=== PATIENT | female | born 1950 | race Caucasian/White ===

== ENCOUNTER → 2018-04-28 12:53 | Outpatient (CLI) | payer MEDICARE, OTHER, SELFPAY ==
--- NOTE | 2018-04-28 | DI.CT.S_ITS ---
PROCEDURE: CT LE LT W CON INDICATIONS: ARTHRITIS OF LEFT FOOT TECHNIQUE: Noncontrast 1-1.5 mm axial sections acquired from above the tibiotalar joint to the bottom of the calcaneus, with coronal and sagittal reformats. COMPARISON: [facility], CR, XR FOOT 3 VIEWS WEIGHT BEARING LEFT, 11/26/2017, 15:31. FINDINGS: Image quality: Excellent. Bones: No acute fracture or focal osseous destruction identified. 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 There is second TMT joint degeneration with subchondral sclerosis and cystic change. Prominent spurring seen at the base of the fifth metatarsal versus sequela from prior remote trauma. A presumed a 4 mm bone island seen in the tibial plafond. 3 mm bone island present in the distal fibula/lateral malleolus. Ununited osteophyte at the dorsal aspect of the talonavicular joint. Plantar calcaneal spur. Soft tissues: Circumferential subcutaneous soft tissue swelling and superficial fascial fluid about the hindfoot. 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 Plantar calcaneal spurring. Dictated by: Marcelo Monsivais M.D. on 04/28/2018 at 16:21 Approved by: Marcelo Monsivais M.D. on 04/28/2018 at 16:26
== END ==
PROVIDERS: PCP Family Medicine; Visit Provider Orthopaedic Surgery Foot and Ankle Surgery
DX: M19.072 Primary osteoarthritis, left ankle and foot (principal); M77.32 Calcaneal spur, left foot
CPT/HCPCS: 73700; 73701

== ENCOUNTER → 2019-11-22 09:35 | Outpatient (CLI) | payer MEDICARE, OTHER, SELFPAY ==
--- NOTE | 2019-11-22 | DI.MRI.S_ITS ---
PROCEDURE: MR THORACIC SPINE WO CON INDICATIONS: SCOLIOSIS TECHNIQUE: Noncontrast sagittal T1 spine echo and T2 fast spin echo, sagittal STIR, axial T1 and T2 fast spin echo through the thoracic spine. COMPARISON: [facility], CR, XR SCOLIOSIS STUDY, 10/28/2019, 13:18. FINDINGS: Image quality: Excellent. Alignment and Curvature: There is S-shaped scoliosis of the thoracolumbar spine with approximately 35? of convex right curvature of the thoracic spine and 45? of convex left curvature of the lumbar spine. There is normal bony alignment. Bones: No congenital vertebral body segmentation anomalies. Marrow is of normal overall signal. No acute vertebral body compression fractures. Spinal Cord: Visualized spinal cord is normal in size and signal. Paraspinous Soft Tissues: No paravertebral masses. Miscellaneous: Mild multilevel degenerative changes. On axial images, central canal and foramina appear widely patent at all scanned levels. IMPRESSION: 1. S-shaped thoracolumbar spine scoliosis. 2. Mild multilevel degenerative disc disease. 3. No central canal stenosis. 4. No significant neural foraminal narrowing. 5. No neural compression. Dictated by: Brenda Navarro MD, PhD on 11/23/2019 at 15:24 Approved by: Brenda Navarro MD, PhD on 11/23/2019 at 15:28
--- NOTE | 2019-11-22 | DI.MRI.S_ITS ---
PROCEDURE: MR LUMBAR SPINE WO CON INDICATIONS: SCOLIOLIS TECHNIQUE: Noncontrast sagittal T1 spin echo and T2 fast echo, sagittal STIR, axial T1 and T2 fast spin echo through the lumbar spine. In cases with scoliosis, additional coronal T2 fast spin echo may be performed. COMPARISON: [facility] [place], CR, XR SCOLIOSIS STUDY, 10/28/2019, 13:18. FINDINGS: Image quality: Excellent. Alignment and Curvature: There is approximately 50? of convex left scoliosis. There is trace L3-L4 and L4-L5 retrolisthesis. Bone Marrow: Reactive endplate change is noted adjacent to the T12-L1, L2-L3 and L3-L4 discs. No acute vertebral body compression fractures. Spinal Cord: Conus medullaris terminates at the L2 level. Visualized cord demonstrates normal signal and size. Paraspinous Soft Tissues: No paravertebral masses. L1-L2: Loss of disc signal and height. Mild, diffuse disc bulge. Mild bilateral facet hypertrophy. No central stenosis. No neural foraminal narrowing. No neural compression. L2-L3: Loss of disc height. Fluid signal noted within the intervertebral disc space which could be due to chronic reactive change versus less likely early manifestation of discitis. Moderate bilateral facet hypertrophy. Mild narrowing of the central canal. No neural foraminal narrowing. No neural compression. L3-L4: Loss of disc signal and height. Mild, diffuse disc bulge. Severe bilateral facet hypertrophy. Severe narrowing of the central canal with slight compression of the traversing nerve roots of the cauda equina. Mild bilateral neural foraminal narrowing. L4-L5: Loss of disc signal. Mild, diffuse disc bulge. Moderate right and severe left facet hypertrophy. Moderate narrowing of the central canal. Mild right and moderate left neural foraminal narrowing. No neural compression. L5-S1: Loss of disc signal. Mild, diffuse disc bulge. Mild right and severe left facet hypertrophy. No central stenosis. Mild to moderate left neural foraminal narrowing. No neural compression. IMPRESSION: 1. Severe convex left scoliosis. 2. Multilevel degenerative disease 3. Multilevel facet arthropathy. 4. Severe L3-L4 central canal narrowing and slight compression of the traversing nerve roots of the cauda equina. Dictated by: Brenda Navarro MD, PhD on 11/23/2019 at 15:39 Approved by: Brenda Navarro MD, PhD on 11/23/2019 at 15:45
== END ==
PROVIDERS: PCP Family Medicine; Referring Provider Neurological Surgery; Visit Provider Orthopaedic Surgery
DX: M41.85 Other forms of scoliosis, thoracolumbar region (principal); M51.34 Other intervertebral disc degeneration, thoracic region; M51.36 Other intervertebral disc degeneration, lumbar region; M48.061 Spinal stenosis, lumbar region without neurogenic claudication; M48.07 Spinal stenosis, lumbosacral region; M47.816 Spondylosis without myelopathy or radiculopathy, lumbar region; M47.817 Spondylosis without myelopathy or radiculopathy, lumbosacral region
CPT/HCPCS: 72146; 72148

== ENCOUNTER → 2020-06-13 10:34 | Outpatient (CLI) | payer MEDICARE, OTHER, SELFPAY ==
--- NOTE | 2020-06-13 10:45 | DI.CT.S_ITS ---
PROCEDURE: CT CHEST WO CON INDICATIONS: Solitary pulmonary nodule TECHNIQUE: Noncontrast 2.0-2.5 mm thick sections acquired from the pulmonary apices to the posterior costophrenic angles. 7 mm thick axial MIP and 5 mm coronal and sagittal reformats were then acquired. A low radiation dose technique was utilized. COMPARISON: Outside Facility, RG, CT T AND L SPINE WO CONTRAST, 01/28/2020, 9:58. FINDINGS: Image quality: Diagnostic, given the low radiation dose technique. Lungs and pleura: Slightly less conspicuous appearance of 9-10 mm left upper lobe fissural ground-glass pulmonary nodule since the prior study although continued surveillance is warranted. 3 mm nodule in the lingula is also unchanged. Mediastinum: Heart size is normal. No pericardial effusion. No mediastinal adenopathy by size criteria. Thoracic aorta and central pulmonary arteries are normal in size. Esophagus is normal in caliber. No hiatal hernia. Bones and chest wall: Severe scoliosis, spondylitic changes and facet arthropathy. Chronic left 11th rib fracture. Small to moderate hiatal hernia. IMPRESSION: Overall, minimal if any change in 9-10 mm left upper lobe fissural ground-glass pulmonary nodule since the prior study. 3 mm lingular nodule also unchanged. Recommend continued long-term surveillance with repeat CT chest in 1 year for both of these findings. Additional chronic and incidental findings as above. Fleischner Society criteria for SOLID lung nodule followup. Nodule size (mm)Low-risk patientHigh-risk patient<6 (single or multiple)No routine followup.Optional CT at 12 months. 6-8 (single or multiple)CT at 6-12 months, then optional CT at 18-24 mo.CT at 6-12 months, then CT at 18-24 months. >8 (single)CT at 3 months, PET-CT, or biopsy. Same as for low-risk pts. >8 (multiple)CT at 3-6 months, then optional CT at 18-24 mo.CT at 3-6 months, then CT at 18-24 months. Fleischner Society criteria for SUB-SOLID lung nodule followup. Solitary pure ground-glass nodules<6 mm (ground glass or part solid)No followup needed. 6 mm or larger (ground glass)CT at 6-12 months to confirm persistence, then CT every 2 years until 5 years.6 mm or larger (part solid)CT at 3-6 months to confirm persistence, then annual CT until 5 years if unchanged and solid component remains <6 mm. Multiple sub-solid nodules<6 mmCT at 3-6 months, then CT consider at 2 & 4 years for high risk patients. [address] at 3-6 months. Subsequent management based on most suspicious lesions. Recommendations do not apply to lung cancer screening, patients with immunosuppression, or patients with known primary cancer. Dictated by: Marcelo Monsivais M.D. on 06/13/2020 at 15:19 Approved by: Marcelo Monsivais M.D. on 06/13/2020 at 15:32
== END ==
PROVIDERS: PCP Family Medicine; Referring Provider Family Medicine; Visit Provider Family Medicine
DX: R91.8 Other nonspecific abnormal finding of lung field (principal); K44.9 Diaphragmatic hernia without obstruction or gangrene; M41.9 Scoliosis, unspecified
CPT/HCPCS: 71250

== ENCOUNTER → 2021-07-17 13:05 | Outpatient (CLI) | payer MEDICARE, OTHER, SELFPAY ==
--- NOTE | 2021-07-17 13:07 | DI.CT.S_ITS ---
PROCEDURE: CT CHEST WO CON INDICATIONS: Solitary pulmonary nodule TECHNIQUE: Noncontrast 2.0-2.5 mm thick sections acquired from the pulmonary apices to the posterior costophrenic angles. 7 mm thick axial MIP and 5 mm coronal and sagittal reformats were then acquired. A low radiation dose technique was utilized. COMPARISON: [facility], CT, CT CHEST WO CON, 06/13/2020, 10:45. FINDINGS: Image quality: Diagnostic, given the low radiation dose technique. Lungs and pleura: Stable ground-glass nodule in the left upper lobe along the major fissure measuring 0.6 x 1.1 cm. A couple of smaller solid nodules are seen in the left lower lobe measuring 4 mm (series 3, image 217) and 2 mm (series 3, image 207). Mediastinum: Heart size is normal. No pericardial effusion. No mediastinal adenopathy by size criteria. Thoracic aorta and central pulmonary arteries are normal in size. Esophagus is normal in caliber. There is a moderate-sized hiatal hernia. Bones and chest wall: No suspicious bony lesions. Severe scoliosis fusion with degenerative changes in thoracolumbar spine. No vertebral body compression fractures. No axillary or supraclavicular adenopathy by size criteria. Thyroid gland is grossly normal . Abdomen: Visualized upper abdomen solid organs and bowel loops appear normal in the absence of contrast. IMPRESSION: 1. Stable left lung nodules. Continued follow-up suggested. Please see enclosed follow-up recommendation. 2. Moderate-sized hiatal hernia. Fleischner Society criteria for SOLID lung nodule followup. Nodule size (mm)Low-risk patientHigh-risk patient<6 (single or multiple)No routine followup.Optional CT at 12 months. 6-8 (single or multiple)CT at 6-12 months, then optional CT at 18-24 mo.CT at 6-12 months, then CT at 18-24 months. >8 (single)CT at 3 months, PET-CT, or biopsy. Same as for low-risk pts. >8 (multiple)CT at 3-6 months, then optional CT at 18-24 mo.CT at 3-6 months, then CT at 18-24 months. Fleischner Society criteria for SUB-SOLID lung nodule followup. Solitary pure ground-glass nodules<6 mm (ground glass or part solid)No followup needed. 6 mm or larger (ground glass)CT at 6-12 months to confirm persistence, then CT every 2 years until 5 years.6 mm or larger (part solid)CT at 3-6 months to confirm persistence, then annual CT until 5 years if unchanged and solid component remains <6 mm. Multiple sub-solid nodules<6 mmCT at 3-6 months, then CT consider at 2 & 4 years for high risk patients. [address] at 3-6 months. Subsequent management based on most suspicious lesions. Recommendations do not apply to lung cancer screening, patients with immunosuppression, or patients with known primary cancer. Dictated by: Kirsten Jules M.D. on 07/17/2021 at 17:40 Approved by: Kirsten Jules M.D. on 07/18/2021 at 3:09
== END ==
PROVIDERS: PCP Family Medicine; Referring Provider Family Medicine; Visit Provider Family Medicine
DX: R91.8 Other nonspecific abnormal finding of lung field (principal); K44.9 Diaphragmatic hernia without obstruction or gangrene
CPT/HCPCS: 71250

== ENCOUNTER → 2021-08-03 12:51 | Outpatient (CLI) | payer MEDICARE, OTHER, SELFPAY ==
--- NOTE | 2021-08-03 12:53 | DI.MRI.S_ITS ---
PROCEDURE: MR LUMBAR SPINE WO CON INDICATIONS: Spinal stenosis, lumbar region with neurogenic cla TECHNIQUE: Noncontrast sagittal T1 spin echo and T2 fast echo, sagittal STIR, axial T1 and T2 fast spin echo through the lumbar spine. In cases with scoliosis, additional coronal T2 fast spin echo may be performed. COMPARISON: [facility], MR, MR LUMBAR SPINE WO CON, 11/22/2019, 10:38. FINDINGS: Image quality: Excellent. Alignment and Curvature: Severe levoscoliosis. Bone Marrow: No acute fracture. Multilevel degenerative endplate sclerosis and spurring. Diffuse facet arthropathy. Spinal Cord: Conus medullaris terminates at the L2 level. Visualized cord demonstrates normal signal and size. Paraspinous Soft Tissues: No paravertebral masses. There is nonspecific, dependent posterior subcutaneous soft tissue edema from level of L1-sacrum T12-L1: No canal lateral recess narrowing. No definite foraminal stenosis although evaluation suboptimal secondary to severe scoliosis. L1-L2: No canal or lateral recess narrowing. Mild bilateral foraminal narrowing, grossly unchanged L2-L3: No definite canal or lateral recess narrowing. No foraminal stenosis. L3-L4: Severe canal stenosis which is probably unchanged. Partial effacement of both lateral recesses with bilaterally symmetric appearance. Moderate left foraminal stenosis, and moderate to severe right foraminal narrowing which appears minimally progressed on both sides, however limited evaluation secondary to severe scoliosis. There is nerve root compression on the right L4-L5: Moderate canal stenosis. Partial effacement of both lateral recesses with bilaterally symmetric appearance. Mild right and left bilateral foraminal narrowing L5-S1: No central canal narrowing. Lateral recesses appear grossly patent. Moderate left foraminal stenosis with slight nerve root compression. No right foraminal narrowing IMPRESSION: Markedly suboptimal evaluation secondary to severe scoliosis. Bilateral minimal interval progression in foraminal stenoses on both sides at L3-L4. Dictated by: Marcelo Monsivais M.D. on 08/03/2021 at 13:53 Approved by: Marcelo Monsivais M.D. on 08/03/2021 at 14:17
== END ==
PROVIDERS: PCP Family Medicine; Referring Provider Orthopaedic Surgery Orthopaedic Surgery of the Spine; Visit Provider Orthopaedic Surgery Orthopaedic Surgery of the Spine
DX: M48.062 Spinal stenosis, lumbar region with neurogenic claudication (principal); M41.9 Scoliosis, unspecified
CPT/HCPCS: 72148

== ENCOUNTER → 2021-10-03 15:46 | Outpatient (CLI) | payer MEDICARE, OTHER, SELFPAY ==
[2021-10-03 16:31] LABS: Add Manual Diff / Slide Review NO; Basophils Absolute Auto 0 /uL (0-100); Basophils Percent Auto 0.8 % (0-2); Eosinophils Absolute Auto 300 /uL (0-450); Eosinophils Percent Auto 5.3 % (2-4); Hematocrit 40.3 % (36-46); Hemoglobin 13.5 g/dL (12.0-16.0); Lymphocytes Absolute Auto 2100 /uL (1100-4500); Mean Corpuscular HGB Conc 33.6 % (30-36); Mean Corpuscular Volume 89.3 fL (80-100); Monocytes Absolute Auto 600 /uL (0-900); Monocytes Percent Auto 10.5 % (3-14); Neutrophils Absolute Auto 2700 /uL (1500-7000); Neutrophils Percent Auto 47.4 % (50-75); Platelet Count 272 X10^3/uL (150-400); Red Blood Cell Count 4.52 X10^6/uL (4.0-5.2); Red Cell Distribution Width 13.4 % (11.6-14.8); White Blood Cell Count 5.7 X10^3/uL (4.5-11.0)
[2021-10-03 17:13] LABS: BUN Creatinine Ratio 15.3 (6-22); Blood Urea Nitrogen 13 mg/dL (7-17); Calcium 11.1 mg/dL (8.4-10.2); Carbon Dioxide 28 mmol/L (22-32); Chloride 106 mmol/L (98-107); Cholesterol 246 mg/dL (140-199); Estimated Glomerular Filt Rate > 60.0 mL/min (>60); Glucose 103 mg/dL (80-110); HDL Cholesterol 60 mg/dL (40-60); HEMOLYSIS < 15 (0-50); LDL Cholesterol Calculated 142 mg/dL (<100); Potassium 4.5 mmol/L (3.4-5.1); Sodium 139 mmol/L (137-145); Triglycerides 220 mg/dL (35-150)
[2021-10-03 17:14] LABS: Creatinine Urine Random 131.6 mg/dL
[2021-10-03 17:19] LABS: Microalbumi Creatinin Ratio Ur 19.7 ug/mg CR (<30); Microalbumin Urine Random 2.6 mg/dL (0-1.6)
== END ==
PROVIDERS: PCP Family Medicine; Referring Provider Family Medicine; Visit Provider Family Medicine
DX: I10 Essential (primary) hypertension (principal); Z13.220 Encounter for screening for lipoid disorders
CPT/HCPCS: 36415; 80048; 80061; 82043; 82570; 85025

== ENCOUNTER → 2021-10-30 13:06 | Outpatient (CLI) | payer MEDICARE, OTHER, SELFPAY ==
[2021-10-30 15:30] LABS: TSH w/ Reflex to FT4 1.43 uIU/mL (0.47-4.68)
[2021-10-31 08:13] LABS: Parathyroid Hormone Int 103 pg/mL (15-65)
[2021-11-01 11:52] LABS: Albumin 3.6 g/dL (2.9-4.4); Alpha-1-Globulin 0.2 g/dL (0.0-0.4); Alpha-2-Globulin 0.7 g/dL (0.4-1.0); Gamma Globulin 0.9 g/dL (0.4-1.8); Globulin Total 2.8 g/dL (2.2-3.9); Protein, Total 6.4 g/dL (6.0-8.5)
== END ==
PROVIDERS: PCP Family Medicine; Referring Provider Family Medicine; Visit Provider Family Medicine
DX: E83.52 Hypercalcemia (principal)
CPT/HCPCS: 36415; 83970; 84155; 84165; 84443

== ENCOUNTER → 2021-12-18 14:09 | Outpatient (CLI) | payer MEDICARE, OTHER, SELFPAY ==
--- NOTE | 2021-12-18 14:26 | DI.CT.S_ITS ---
PROCEDURE: CT LUMBAR SPINE WO CON INDICATIONS: Spinal stenosis, lumbar region without neurogenic claudicati TECHNIQUE: Noncontrast 3 mm thick sections acquired from the T12 level to the sacrum. Sagittal and coronal reformats were constructed. For radiation dose reduction, the following was used: automated exposure control. COMPARISON: None. FINDINGS: Image quality: Excellent. Bones: There is severe leftward curvature of the thoracolumbar junction. Multilevel disc space narrowing and endplate osteophyte formation is present. Multilevel facet hypertrophy is present. No acute vertebral body compression fractures. No suspicious lytic or blastic bony lesions. No pars defects. Mild multilevel canal stenoses are present. Suboptimal evaluation of the neural foramina. There appears to be moderate to severe foraminal stenosis on the right at L3-L4, and on the left at L5-S1. Soft tissues: Moderate hiatal hernia. No retroperitoneal masses or hematomas. Visualized aorta is normal in caliber. IMPRESSION: 1. Severe leftward curvature of the thoracolumbar spine. 2. Multilevel degenerative disc and facet disease. 3. Mild multilevel canal stenosis. 4. Multilevel foraminal stenoses, worst at L3-L4 and L5-S1 as described above. 5. Hiatal hernia. Dictated by: Erica Barlow M.D. on 12/18/2021 at 15:28 Approved by: Erica Barlow M.D. on 12/18/2021 at 15:30
== END ==
PROVIDERS: PCP Family Medicine; Referring Provider Orthopaedic Surgery Orthopaedic Surgery of the Spine; Visit Provider Orthopaedic Surgery Orthopaedic Surgery of the Spine
DX: M48.061 Spinal stenosis, lumbar region without neurogenic claudication (principal); M48.07 Spinal stenosis, lumbosacral region; M51.36 Other intervertebral disc degeneration, lumbar region; K44.9 Diaphragmatic hernia without obstruction or gangrene
CPT/HCPCS: 72131

== ENCOUNTER → 2023-03-11 13:37 | Outpatient (CLI) | payer MEDICARE, OTHER, SELFPAY ==
--- NOTE | 2023-03-11 13:40 | DI.CT.S_ITS ---
PROCEDURE: CT THORACIC SPINE WO CON INDICATIONS: Cervicalgia, scoliosis TECHNIQUE: Noncontrast 3 mm thick sections acquired through the region of interest in the thoracic spine. Sagittal and coronal reformats were then constructed. For radiation dose reduction, the following was used: automated exposure control. COMPARISON: Outside Facility, RG, CT T AND L SPINE WO CONTRAST, 01/28/2020, 9:58. FINDINGS: Image quality: Good Bones: There is moderate rightward scoliosis centered at T9. No acute vertebral body height loss. Mild scattered degenerative changes, without high-grade thecal sac stenosis identified on limited CT images. No definite traumatic subluxation. Partially seen cervical fusion hardware. Soft tissues: No suspicious calcifications. Partially visualized intrathoracic structures unremarkable. IMPRESSION: Mild scattered degenerative changes in the thoracic spine. Moderate rightward scoliosis centered at T9. Consider further evaluation with MRI or CT myelogram if needed. Dictated by: Dk Roman M.D. on 03/11/2023 at 15:58 Approved by: Dk Roman M.D. on 03/11/2023 at 16:00
--- NOTE | 2023-03-11 13:40 | DI.CT.S_ITS ---
PROCEDURE: CT CERVICAL SPINE WO CON INDICATIONS: Cervicalgia, scoliosis TECHNIQUE: Noncontrast 3 mm thick sections acquired from the skull base to the T4 level. Sagittal and coronal reformats were then constructed. For radiation dose reduction, the following was used: automated exposure control, adjustment of mA and/or kV according to patient size. COMPARISON: None. FINDINGS: Image quality: Good Bones: Anterior fusion hardware from C4-C7 with interbody spacers, with evidence of osseous integration. No acute appearing fracture or dislocation. Soft tissues: No pathologic prevertebral soft tissue swelling. There is suspected thecal sac narrowing, [id number] at C3-C4 C5-C6, and C6-C7. Partially seen paranasal sinus mucous cysts. IMPRESSION: Cervical fusion hardware. [id number] degenerative changes. Consider MRI or CT myelogram to further evaluate if there are no contraindications. Dictated by: Dk Roman M.D. on 03/11/2023 at 15:54 Approved by: Dk Roman M.D. on 03/11/2023 at 15:58
--- NOTE | 2023-03-11 13:40 | DI.CT.S_ITS ---
PROCEDURE: CT LUMBAR SPINE WO CON INDICATIONS: Cervicalgia, scoliosis TECHNIQUE: Noncontrast 3 mm thick sections acquired from the T12 level to the sacrum. Sagittal and coronal reformats were constructed. For radiation dose reduction, the following was used: automated exposure control. COMPARISON: [facility], CT, CT LUMBAR SPINE WO CON, 12/18/2021, 14:16. Outside Facility, RG, CT T AND L SPINE WO CONTRAST, 01/28/2020, 9:58. FINDINGS: Image quality: Good Bones: Possible postsurgical changes in the thoracolumbar junction. Vertebral body heights are well maintained. Moderate to severe leftward lumbar spinal curvature centered at L2. Moderate degenerative changes with facet arthropathy, disc space height loss, and osteophytes. [id number] multiple areas of narrowing are suspected of the thecal sac, without severe narrowing. There also suspected areas of neural foraminal narrowing, for example in the right at L3-L4. Soft tissues: There are cholecystectomy clips. Bilateral adrenal thickening. IMPRESSION: Moderate to severe leftward lumbar spinal scoliosis. Moderate degenerative changes. Consider further evaluation with MRI or CT myelography if indicated. Dictated by: Dk Roman M.D. on 03/11/2023 at 16:01 Approved by: Dk Roman M.D. on 03/11/2023 at 16:08
== END ==
PROVIDERS: PCP Family Medicine; Referring Provider Student in an Organized Health Care Education/Training Program; Visit Provider Student in an Organized Health Care Education/Training Program
DX: M47.812 Spondylosis without myelopathy or radiculopathy, cervical region (principal); M47.814 Spondylosis without myelopathy or radiculopathy, thoracic region; M47.816 Spondylosis without myelopathy or radiculopathy, lumbar region; M54.2 Cervicalgia; M41.9 Scoliosis, unspecified; Z98.1 Arthrodesis status
CPT/HCPCS: 72125; 72128; 72131

== ENCOUNTER → 2024-10-10 07:56 | Outpatient (CLI) | payer MEDICARE, OTHER, SELFPAY ==
--- NOTE | 2024-10-10 | DI.MG.S_ITS ---
BILATERAL DIGITAL SCREENING MAMMOGRAM 3D/2D WITH CAD: 10/10/2024 CLINICAL: Routine screening. Comparison is made to exams dated: 08/02/2023 mammogram, 07/31/2022 mammogram, and 07/25/2021 mammogram - [facility]. There are scattered areas of fibroglandular density (category b / 25%-50% glandular tissue). Current study was also evaluated with a Computer Aided Detection (CAD) system. No significant masses, calcifications, or other findings are seen in either breast. There has been no significant interval change. IMPRESSION: NEGATIVE There is no mammographic evidence of malignancy. A 1 year screening mammogram is recommended. Based on the Tyrer Cuzick model (a risk assessment model) the patient's lifetime risk is 3.7% and her 10 year risk is 3.0%. According to the ACR, ACS, and NCCN guidelines, an annual breast MRI exam along with mammogram is recommended if the patient's lifetime risk is 20% or greater. This exam was interpreted at Station ID: [id number]. NOTE: For mammograms, a report in lay terms will be sent to the patient. Approximately 15% of breast malignancies will not be visualized mammographically. In the management of a palpable breast mass, a negative mammogram must not discourage biopsy of a clinically suspicious lesion. Electronically Signed By: Vanita Navas M.D., Ph.D. maria g/christal:10/12/2024 08:45:53 letter sent: Normal Exam ACR BI-RADS Category 1: Negative
== END ==
PROVIDERS: PCP Family Medicine; Referring Provider Family Medicine; Visit Provider Family Medicine
DX: Z12.31 Encounter for screening mammogram for malignant neoplasm of breast (principal)
CPT/HCPCS: 77063; 77067